=== PATIENT | female | born 1980 | race Caucasian/White ===

== ENCOUNTER 2021-08-21 11:07 | Inpatient (IN) ==
[2021-08-21] MEDS ORDERED: ALUM/MAG/SIMETH/LIDO VISC 1:1 30 ML BOTTLE PO STA (12:01)
[2021-08-21] MEDS ORDERED: PANTOPRAZOLE 40 MG TABLET PO STA (12:01)
[2021-08-21 12:08] LABS: Basophils # 0.1 10*3/uL (0.0-0.2); Basophils % 0.8 % (0.0-0.8); Eosinophils # 0.2 10*3/uL (0.0-0.87); Eosinophils % 2.2 % (0.00-10.9); Hematocrit 46.3 VOL% (35.7-47.0); Hemoglobin 14.4 GM/DL (12.0-16.0); Immature Granulocytes % 0.4 %; Immature Granulocytes Absolute 0.04 #; Lymphocytes # 1.7 10*3/uL (1.4-4.0); Lymphocytes % 18.6 % (21.3-54.2); Mean Corpuscular HGB Conc 31.1 GM/DL (32-36); Mean Platelet Volume 12.1 FL (9.6-12.0); Monocytes # 0.6 10*3/uL (0.11-0.8); Monocytes % 6.7 % (1.7-12.7); Neutrophils % 71.3 % (38.7-73.9); Platelet Count 262 T/CUMM (130-400); Red Blood Count 5.03 MC/CUMM (3.8-5.5); Red Cell Distribution Width 12.9 % (9.3-17.3); White Blood Count 9.2 T/CUMM (4-12)
[2021-08-21 12:27] LABS: Albumin 4.1 G/DL (3.4-5.0); Bilirubin,Total 0.4 MG/DL (0.20-1.00); Calcium 9.6 MG/DL (8.5-10.1); Osmolality,Calculated 277.5 MOS/KG (273-304); Potassium 4.3 MMOL/L (3.5-5.1); Total Protein 7.9 G/DL (6.4-8.2)
[2021-08-21] MEDS ORDERED: ONDANSETRON 4 MG/2 ML VIAL IV STA (12:33)
[2021-08-21] MEDS ORDERED: MORPHINE 2 MG/1 ML SYRINGE IV STA (12:33)
[2021-08-21] MEDS ORDERED: NITROGLYCERIN SL 0.4 MG TABLET SL STA (12:34)
[2021-08-21] MEDS ORDERED: ASPIRIN CHEW 81 MG TABLET PO STA (12:34)
[2021-08-21] MEDS ORDERED: METOPROLOL TARTRATE 5 MG/5 ML VIAL IV STA (12:43)
[2021-08-21] MEDS ORDERED: ENOXAPARIN 100 MG/ML SYRINGE SUBCUT STA (12:43)
[2021-08-21] MEDS ORDERED: SIMETHICONE CHEW 125 MG TABLET PO PRN (13:03)
[2021-08-21] MEDS ORDERED: ONDANSETRON 4 MG/2 ML VIAL IV PRN (13:03)
[2021-08-21] MEDS ORDERED: GLUCAGON 1 MG VIAL IM PRN (13:03)
[2021-08-21] MEDS ORDERED: DEXTROSE 10% 25 GM/250 ML BAG IV PRN (13:03)
[2021-08-21] MEDS ORDERED: hydrALAZINE 20 MG/1 ML VIAL IV PRN (13:03)
[2021-08-21] MEDS ORDERED: NITROGLYCERIN SL 0.4 MG TABLET SL PRN (13:09)
[2021-08-21] MEDS ORDERED: MORPHINE 2 MG/1 ML SYRINGE IV PRN (13:09)
[2021-08-21] MEDS ORDERED: ENOXAPARIN 40 MG/0.4 ML SYRINGE SUBCUT SCH (13:30)
[2021-08-21] MEDS: LEVOTHYROXINE 150 MCG TABLET PO SCH (15:37)
[2021-08-21] MEDS: NITROGLYCERIN 2% OINT 1 INCH/GM PACK TOP SCH ×2 (16:27→21:55)
[2021-08-21] MEDS: SODIUM CHLORIDE 0.9% 1,000 ML IV SCH (16:32)
[2021-08-21] MEDS: INSULIN LISPRO 100 UNIT/ML SUBCUT SCH ×2 (16:37→21:19)
[2021-08-21] MEDS ORDERED: diphenhydrAMINE CAP 50 MG CAPSULE PO ONE (18:14)
[2021-08-21] MEDS ORDERED: MAGNESIUM SULF RIDER 2 GM/50 ML PREMIX IV PRN (18:14)
[2021-08-21] MEDS ORDERED: DIAZEPAM 5 MG TABLET PO ONE (18:14)
[2021-08-21] MEDS ORDERED: POTASSIUM CHLORIDE RIDER 10 MEQ/100 ML PREMIX IV PRN (18:14)
[2021-08-21] MEDS: carvediloL 3.125 MG TABLET PO SCH (18:34)
[2021-08-21] MEDS: ATORVASTATIN 40 MG TABLET PO SCH (21:55)
[2021-08-21] MEDS: ACETAMINOPHEN 325 MG TABLET PO PRN (21:56)
[2021-08-22] MEDS: SODIUM CHLORIDE 0.9% 1,000 ML IV SCH ×3 (02:32→21:24)
[2021-08-22] MEDS: NITROGLYCERIN 2% OINT 1 INCH/GM PACK TOP SCH ×4 (03:07→21:23)
[2021-08-22 05:16] LABS: Basophils # 0.1 10*3/uL (0.0-0.2); Basophils % 0.7 % (0.0-0.8); Eosinophils # 0.2 10*3/uL (0.0-0.87); Eosinophils % 2.6 % (0.00-10.9); Hematocrit 35.9 VOL% (35.7-47.0); Hemoglobin 11.5 GM/DL (12.0-16.0); Immature Granulocytes % 0.4 %; Immature Granulocytes Absolute 0.03 #; Lymphocytes # 1.8 10*3/uL (1.4-4.0); Lymphocytes % 24.1 % (21.3-54.2); Mean Corpuscular Volume 90.2 FL (87-102); Mean Platelet Volume 11.4 FL (9.6-12.0); Monocytes # 0.8 10*3/uL (0.11-0.8); Monocytes % 10.3 % (1.7-12.7); Neutrophils % 61.9 % (38.7-73.9); Platelet Count 228 T/CUMM (130-400); Red Blood Count 3.98 MC/CUMM (3.8-5.5); Red Cell Distribution Width 12.9 % (9.3-17.3); White Blood Count 7.4 T/CUMM (4-12)
[2021-08-22] MEDS: ACETAMINOPHEN 325 MG TABLET PO PRN ×2 (05:42→21:24)
[2021-08-22] MEDS: LEVOTHYROXINE 150 MCG TABLET PO SCH (05:43)
[2021-08-22 05:52] LABS: Bilirubin,Total 0.5 MG/DL (0.20-1.00); Calcium 8.8 MG/DL (8.5-10.1); Osmolality,Calculated 278.4 MOS/KG (273-304); Potassium 4.1 MMOL/L (3.5-5.1); Risk Ratio 3.51; Thyroid Stimulating Hormone 1.58 uIU/ml (0.358-3.74); Total Protein 6.3 G/DL (6.4-8.2); VLDL Cholesterol 28.2 MG/DL
[2021-08-22] MEDS ORDERED: DIAZEPAM 5 MG TABLET PO ONE (06:00)
[2021-08-22] MEDS ORDERED: diphenhydrAMINE CAP 50 MG CAPSULE PO ONE (06:00)
[2021-08-22] MEDS ORDERED: ENOXAPARIN 40 MG/0.4 ML SYRINGE SUBCUT SCH ×2 (09:00→21:00)
[2021-08-22] MEDS: ASPIRIN EC 325 MG TABLET PO SCH (10:15)
[2021-08-22] MEDS: hydroCHLOROthiazide 12.5 MG CAPSULE PO SCH (10:15)
[2021-08-22] MEDS: carvediloL 3.125 MG TABLET PO SCH ×2 (10:15→16:51)
[2021-08-22] MEDS: LOSARTAN 50 MG TABLET PO SCH (10:15)
[2021-08-22] MEDS: PANTOPRAZOLE 40 MG TABLET PO SCH (10:15)
[2021-08-22] MEDS: INSULIN LISPRO 100 UNIT/ML SUBCUT SCH ×4 (10:49→21:33)
[2021-08-22] MEDS ORDERED: HEPARIN/NACL 0.9% 2 UNITS/ML 3,000 UNIT/1,500 ML BAG IV ONE (13:16)
[2021-08-22] MEDS ORDERED: MIDAZOLAM 2 MG/2 ML VIAL ONE ×2 (13:31→13:56)
[2021-08-22] MEDS ORDERED: fentaNYL 100 MCG/2 ML VIAL ONE (13:32)
[2021-08-22] MEDS: ATORVASTATIN 40 MG TABLET PO SCH (21:24)
[2021-08-23] MEDS: NITROGLYCERIN 2% OINT 1 INCH/GM PACK TOP SCH (03:54)
[2021-08-23 04:30] LABS: Basophils % 0.6 % (0.0-0.8); Eosinophils # 0.2 10*3/uL (0.0-0.87); Eosinophils % 3.8 % (0.00-10.9); Hematocrit 35.6 VOL% (35.7-47.0); Hemoglobin 11.4 GM/DL (12.0-16.0); Immature Granulocytes % 0.6 %; Immature Granulocytes Absolute 0.04 #; Lymphocytes # 1.8 10*3/uL (1.4-4.0); Lymphocytes % 28.3 % (21.3-54.2); Mean Corpuscular Volume 90.1 FL (87-102); Mean Platelet Volume 11.2 FL (9.6-12.0); Monocytes # 0.7 10*3/uL (0.11-0.8); Monocytes % 10.2 % (1.7-12.7); Neutrophils % 56.5 % (38.7-73.9); Platelet Count 237 T/CUMM (130-400); Red Blood Count 3.95 MC/CUMM (3.8-5.5); Red Cell Distribution Width 12.9 % (9.3-17.3); White Blood Count 6.4 T/CUMM (4-12)
[2021-08-23 04:55] LABS: Calcium 8.8 MG/DL (8.5-10.1); Osmolality,Calculated 277.4 MOS/KG (273-304)
[2021-08-23 05:00] LABS: Albumin 3.2 G/DL (3.4-5.0); Bilirubin,Total 0.6 MG/DL (0.20-1.00); Calcium 8.7 MG/DL (8.5-10.1); Osmolality,Calculated 273.7 MOS/KG (273-304); Total Protein 6.4 G/DL (6.4-8.2)
[2021-08-23] MEDS: LEVOTHYROXINE 150 MCG TABLET PO SCH (05:35)
[2021-08-23] MEDS: INSULIN LISPRO 100 UNIT/ML SUBCUT SCH ×2 (07:55→12:17)
[2021-08-23] MEDS ORDERED: CHOLECALCIFEROL 1,000 UNIT TABLET PO SCH (09:00)
[2021-08-23] MEDS ORDERED: CLOPIDOGREL 75 MG TABLET PO SCH (09:00)
[2021-08-23] MEDS: LOSARTAN 50 MG TABLET PO SCH (10:05)
[2021-08-23] MEDS: hydroCHLOROthiazide 12.5 MG CAPSULE PO SCH (10:05)
[2021-08-23] MEDS: PANTOPRAZOLE 40 MG TABLET PO SCH (10:05)
[2021-08-23] MEDS: ASPIRIN EC 325 MG TABLET PO SCH (10:05)
[2021-08-23] MEDS: carvediloL 3.125 MG TABLET PO SCH (10:06)
[2021-08-23 11:33] VITALS: BP 116/77
[2021-08-23 12:50] LABS: CKMB % 1.79 %
[2021-08-23 12:58] LABS: High Sensitive Troponin I* 14074.1 ng/L (0-54)
[2021-08-24] MEDS ORDERED: ASPIRIN EC 81 MG TABLET PO SCH (09:00)
[2021-08-24] MEDS ORDERED: ASPIRIN 325 MG TABLET PO SCH (09:00)
== END 2021-08-23 15:08 | disposition home or self-care (01) | DRG 281 ==
LOC: N.ED 11:07 → N.EDINP 13:21 → SUATTDRO 13:21 → N.TELES 14:31
PROVIDERS: ADMIT Internal Medicine; ATTEND Internal Medicine
PROC: CLCCHCL (ICD-10-PCS; 2021-08-22 09:45)